=== PATIENT | male | born 1970 | race Caucasian/White ===

== ENCOUNTER 2018-11-29 09:18 | Outpatient (CLI) | payer OTHER ==
--- NOTE | 2018-11-29 12:30 | Ultrasound Report ---
Reason: HX OF HERNIA,DELAYED DESCENDED TESTES Procedure Date: 11/29/2018 Accession Number: [id number] / [id number] Procedure: US - Pelvic Limited or F/U CPT Code: FULL RESULT: EXAM: INGUINAL ULTRASOUND EXAM DATE: 11/29/2018 11:00 AM. CLINICAL HISTORY: History of delayed descended testes and inguinal pain, clinical concern for hernia. COMPARISON: None. TECHNIQUE: Real-time sonographic imaging of the inguinal canals and vascular structures, including color-flow, was performed by the entry level recruiter. Multiple registered representative static images were saved for review. FINDINGS: Hernia: Direct right inguinal hernia is identified with Valsalva maneuver, this spontaneously reduces. Soft Tissues: Normal. No fluid collections or adenopathy. Other: Limited testicular ultrasound identifies 2 symmetric appearing testicles within the scrotum. IMPRESSION: Right reducible direct inguinal hernia. [facility]
== END 2018-11-29 09:19 | disposition home or self-care (01) ==
LOC: EDSEX 09:18 → DI 09:18 → EDSEX 09:45
PROVIDERS: ATTEND Nurse Practitioner Adult Health
DX: K40.31 Unilateral inguinal hernia, with obstruction, without gangrene, recurrent (principal)
CPT/HCPCS: 76857